=== PATIENT | male | born 1985 ===

== ENCOUNTER 2017-10-31 20:51 | Emergency (ER) | payer OTHER ==
[2017-10-31 21:55] VITALS: BP 166/89; PULSE 99; RESP 18; TEMP 98.5; O2SAT 100
--- NOTE | 2017-10-31 22:39 | ED PDOC ---
HPI: Headache Time Seen by Provider: 10/31/17 22:10 Chief Complaint (Nursing): Headache Chief Complaint (Provider): headache History Per: Patient History/Exam Limitations: no limitations Onset/Duration Of Symptoms: Days (1 week) Current Symptoms Are (Timing): Still Present Quality: "Pain" Additional Complaint(s): 31 y/o male presents for evaluation of left-sided headache x 1 week. Associated radiation of pain to left side of neck, left arm. Patient states he was evaluated [place] [facility] [place] [facility] [place] and prescribed muscle relaxants without improvement. Patient reports two days later he developed paralysis to left side of his face. Denies fever, dizziness, extremity numbness/weakness, chest pain, shortness of breath, palpitations. NIHSS Stroke Scale - Date/Time Evaluation Performed Date Performed: 10/31/17 Past Medical History Reviewed: Historical Data, Nursing Documentation, Vital Signs Vital Signs: Last Vital Signs Temp 98.5 F 10/31/17 21:52 Pulse 99 H 10/31/17 21:52 Resp 18 10/31/17 21:52 BP 166/89 H 10/31/17 21:52 Pulse Ox 100 10/31/17 21:52 - Medical History PMH: No Chronic Diseases - Surgical History Surgical History: No Surg Hx - Family History Family History: States: No Known Family Hx - Social History Current smoker - smoking cessation education provided: No Alcohol: None Drugs: Denies - Home Medications Home Medications: Ambulatory Orders Medication Instructions Recorded Acyclovir 400 mg PO TID #29 tablet 10/31/17 predniSONE [Prednisone] 10 mg PO DAILY #42 tab 11/01/17 - Allergies Allergies/Adverse Reactions: Allergies Allergy/AdvReac Type Severity Reaction Status Date / Time No Known Allergies Allergy Verified 10/31/17 21:52 Review of Systems ROS Statement: Except As Marked, All Systems Reviewed And Found Negative Neurological: Positive for: Weakness (left side of face), Headache Physical Exam - Reviewed Nursing Documentation Reviewed: Yes Vital Signs Reviewed: Yes - Physical Exam Appears: Positive for: Well, Non-toxic, No Acute Distress Head Exam: Positive for: ATRAUMATIC, NORMAL INSPECTION, NORMOCEPHALIC Skin: Positive for: Normal Color Eye Exam: Positive for: Normal appearance, EOMI, PERRL, Other (difficulty closing left eye) ENT: Positive for: Normal ENT Inspection Cardiovascular/Chest: Positive for: Regular Rate, Rhythm Respiratory: Positive for: Normal Breath Sounds Gastrointestinal/Abdominal: Positive for: Normal Exam Back: Positive for: Normal Inspection Extremity: Positive for: Normal ROM Neurologic/Psych: Positive for: Alert, Oriented, Facial Droop (left-sided paralysis, forehead involvement) - Laboratory Results Result Diagrams: 10/31/17 23:19 11/01/17 01:58 - ECG O2 Sat by Pulse Oximetry: 100 - Progress ED Course And Treament: labs, CT head EXAM: CT Head Without Intravenous Contrast CLINICAL HISTORY: 31 years old, male; Pain and signs and symptoms; Numbness / parasthesia; Left; Headache; Other: Left sided; Additional info: Left-sided headache, facial droop x 6 days TECHNIQUE: Axial computed tomography images of the head/brain without intravenous contrast. All CT scans at this facility use one or more dose reduction techniques, viz.: automated exposure control; ma/kV adjustment per patient size (including targeted exams where dose is matched to indication; i.e. head); or iterative reconstruction technique. Coronal and sagittal reformatted images were created and reviewed. COMPARISON: No relevant prior studies available. FINDINGS: Brain: No intracranial hemorrhage. No mass. No definite edema. Ventricles: No hydrocephalus. Bones/joints: No acute fracture. Soft tissues: Unremarkable. Sinuses: No acute sinusitis. Mastoid air cells: No mastoid effusion. Orbits: Unremarkable as visualized. IMPRESSION: 1. No definite acute intracranial abnormality. Acute infarction may be CT occult within first 24 hours. If a focal deficit persists, consider followup CT or MRI for further evaluation. Case discussed with ED attending Dr. Veliz, will treat with prednisone, acyclovir and outpatient f/up. Patient educated on findings, discharged with rx prednisone, acyclovir (doses given in ED) Advised artifical tears for left eye Follow up PMD 2-3 days. Return precautions given. Disposition - Clinical Impression Clinical Impression: Mak's palsy - Patient ED Disposition Is Patient to be Admitted: No Counseled Patient/Family Regarding: Studies Performed, Diagnosis, Need For Followup, Rx Given - Disposition Referrals: [facility] [Outside] Disposition: Routine/Home Disposition Time: 00:51 Condition: STABLE Prescriptions: Acyclovir 400 mg PO TID #29 tablet predniSONE [Prednisone] 10 mg PO DAILY #42 tab Instructions: Mak's Palsy Forms: [employer] (Vietnamese)
--- NOTE | 2017-10-31 23:08 | CT ---
EXAM: CT Head Without Intravenous Contrast CLINICAL HISTORY: 31 years old, male; Pain and signs and symptoms; Numbness / parasthesia; Left; Headache; Other: Left sided; Additional info: Left-sided headache, facial droop x 6 days TECHNIQUE: Axial computed tomography images of the head/brain without intravenous contrast. All CT scans at this facility use one or more dose reduction techniques, viz.: automated exposure control; ma/kV adjustment per patient size (including targeted exams where dose is matched to indication; i.e. head); or iterative reconstruction technique. Coronal and sagittal reformatted images were created and reviewed. COMPARISON: No relevant prior studies available. FINDINGS: Brain: No intracranial hemorrhage. No mass. No definite edema. Ventricles: No hydrocephalus. Bones/joints: No acute fracture. Soft tissues: Unremarkable. Sinuses: No acute sinusitis. Mastoid air cells: No mastoid effusion. Orbits: Unremarkable as visualized. IMPRESSION: 1. No definite acute intracranial abnormality. Acute infarction may be CT occult within first 24 hours. If a focal deficit persists, consider followup CT or MRI for further evaluation.
[2017-10-31 23:23] LABS: BASO # 0.1 K/uL (0.0-0.2); BASO % 0.7 % (0.0-2.0); EOS # 0.1 K/uL (0.0-0.7); EOS % 1.6 % (0.0-4.0); HEMOGLOBIN 14.6 g/dL (12.0-18.0); LYMPH # 2.6 K/uL (1.0-4.3); LYMPH % 34.2 % (20.0-40.0); MEAN CELL VOLUME 88.5 fl (80.0-94.0); MEAN CORPUSCULAR HEMOGLOBIN 30.9 pg (27.0-31.0); MEAN CORPUSCULAR HGB CONC 34.9 g/dL (33.0-37.0); MEAN PLATELET VOLUME 9.1 fl (7.2-11.7); MONO # 0.5 K/uL (0.0-0.8); MONO % 6.5 % (0.0-10.0); NEUT # 4.3 K/uL (1.8-7.0); NRBC % 0.2 % (0.0-0.0); RBC 4.73 Mil/uL (4.40-5.90); RED CELL DISTRIBUTION WIDTH 14.1 % (11.5-14.5); WHITE BLOOD COUNT 7.6 K/uL (4.8-10.8)
[2017-10-31 23:37] LABS: ALB/GLOB RATIO 1.2 (1.0-2.1); ALBUMIN 4.2 g/dL (3.5-5.0); ALT/SGPT 49 U/L (21-72); AST/SGOT 28 U/L (17-59); BLOOD UREA NITROGEN 21 mg/dl (9-20); CALCIUM 9.8 mg/dL (8.4-10.2); GFR AFRICAN-AMERICAN > 60; GFR NON-AFRICAN AMERICAN > 60
[2017-11-01 02:15] LABS: ALB/GLOB RATIO 1.3 (1.0-2.1); ALBUMIN 4.3 g/dL (3.5-5.0); ALT/SGPT 44 U/L (21-72); AST/SGOT 23 U/L (17-59); BLOOD UREA NITROGEN 21 mg/dl (9-20); CALCIUM 9.5 mg/dL (8.4-10.2); GFR AFRICAN-AMERICAN > 60; GFR NON-AFRICAN AMERICAN > 60
== END 2017-11-01 03:20 | disposition home or self-care (01) ==
LOC: H.ER 20:51
DX: G51.0 Bell's palsy (principal); R51 Headache
CPT/HCPCS: 70450; 80053; 85025; 99284; J1885